=== PATIENT | female | born 1965 | race Caucasian/White ===

== ENCOUNTER 2019-10-01 14:59 | Emergency (ER) | payer MEDICAID ==
[~2019-10-01] VITALS: Ht 152.4 cm; Wt 65.8 kg
[~2019-10-01 14:59] MED LIST: GLIPIZIDE5 MG PO; GLUCOPHAGE500 MG PO; LANTUS SOLOS100 U/M1 SQ
[2019-10-01 15:10] VITALS: Ht 152.4 cm; Wt 65.8 kg
[2019-10-01 15:38] LABS: microscopic required? NO
[2019-10-01 15:42] LABS: BASOPHIL % 0.3 % (0-2); PLATELET COUNT 233 x10^3mcL (130-400); RED CELL DISTRIBUTION WIDTH 13.6 % (11.5-14.5)
[2019-10-01 15:50] LABS: UA SPECIFIC GRAVITY <=1.005 (1.005-1.035); urine erythrocyte NEGATIVE (NEGATIVE)
[2019-10-01 16:03] LABS: ALBUMIN 4.1 g/dL (3.4-5.0); ALKALINE PHOSPHATASE 107 U/L (46-116); ALT/SGPT 62 U/L (14-59); AST/SGOT 9 U/L (15-37); BILIRUBIN TOTAL 0.3 mg/dL (0.20-1.00); CALCIUM 9.9 mg/dL (8.5-10.1); CARBON DIOXIDE 29.5 mmol/L (21-32); CHLORIDE SERUM 100 mmol/L (98-107); CREATININE SERUM 0.8 mg/dL (0.6-1.0); GFR1 > 60 mL/min; POTASSIUM SERUM 4.3 mmol/L (3.5-5.1); SODIUM SERUM 137 mmol/L (136-145); TOTAL PROTEIN, SERUM 8.2 g/dL (6.4-8.2)
[2019-10-01 16:09] LABS: GLUCOSE SERUM 521 mg/dL (74-106)
[2019-10-01 22:08] VITALS: BP 126/80
== END 2019-10-01 22:08 | disposition home or self-care (01) ==
LOC: ED 14:59
DX: E11.65 Type 2 diabetes mellitus with hyperglycemia (principal); R51 Headache; R42 Dizziness and giddiness
CPT/HCPCS: 82962; 87804; J1815; J1885; J7030; J7040; Q0092

== ENCOUNTER 2020-02-18 23:06 | Emergency (ER) | payer MEDICAID ==
[~2020-02-18] VITALS: Ht 152.4 cm; Wt 65.8 kg
[2020-02-18 23:13] VITALS: Ht 152.4 cm; Wt 65.8 kg
[2020-02-19 00:46] VITALS: BP 124/86
== END 2020-02-19 01:58 | disposition home or self-care (01) ==
LOC: ED 23:06
DX: S83.91XA Sprain of unspecified site of right knee, initial encounter (principal); S40.012A Contusion of left shoulder, initial encounter; E11.9 Type 2 diabetes mellitus without complications; Y04.8XXA Assault by other bodily force, initial encounter; Y93.89 Activity, other specified; Y92.89 Other specified places as the place of occurrence of the external cause; Y99.8 Other external cause status
CPT/HCPCS: J1885; Q0092

== ENCOUNTER 2020-06-21 18:56 | Emergency (ER) | payer MEDICAID ==
[~2020-06-21] VITALS: Ht 149.9 cm; Wt 64.9 kg
[2020-06-21 19:07] VITALS: Ht 149.9 cm; Wt 64.9 kg
[2020-06-21 20:36] VITALS: BP 159/71
== END 2020-06-21 20:36 | disposition home or self-care (01) ==
LOC: ED 18:56
DX: M75.31 Calcific tendinitis of right shoulder (principal); E11.9 Type 2 diabetes mellitus without complications; E66.9 Obesity, unspecified
CPT/HCPCS: J1100; J1885; Q0092